=== PATIENT | female | born 1950 | race Caucasian/White ===

== ENCOUNTER 2021-08-05 14:13 | Outpatient (RCR) | payer MEDICARE, SELFPAY | END 2021-08-10 11:52 | disposition home or self-care (01) | LOC: HO.WCC 14:13 | PROVIDERS: PCP Internal Medicine; Visit Provider Surgery | DX: Z09 Encounter for follow-up examination after completed treatment for conditions other than malignant neoplasm (principal); Q82.0 Hereditary lymphedema; E11.22 Type 2 diabetes mellitus with diabetic chronic kidney disease; N18.9 Chronic kidney disease, unspecified; Z79.4 Long term (current) use of insulin | CPT/HCPCS: 99213 ==